=== PATIENT | female | born 2000 | race Caucasian/White ===

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

== ENCOUNTER → 2021-02-20 | Day surgery (SDC) | payer BC, OTHER ==
[~2021-02-20] MED LIST changes: +ALLERGY SHOT INJ; +HYDROCODON-ACE1 EAC4 PO; +ZOFRAN ODT 4 MG4 MG GT
== END | disposition home or self-care (01) ==
LOC: OR 05:42
DX: K80.64 Calculus of gallbladder and bile duct with chronic cholecystitis without obstruction (principal); Z20.822 Contact with and (suspected) exposure to COVID-19; K76.0 Fatty (change of) liver, not elsewhere classified; E66.01 Morbid (severe) obesity due to excess calories
CPT/HCPCS: 84703; C1729; J0690; J1100; J1170; J1885; J2001; J2250; J2405; J2704; J2710; J3010; J7030; J7120

== ENCOUNTER 2021-04-04 15:32 | Emergency (ER) | payer BC, OTHER ==
[~2021-04-04] VITALS: Ht 167.6 cm; Wt 89.4 kg
== END 2021-04-04 18:23 | disposition home or self-care (01) ==
LOC: ER1 15:32
DX: U07.1 COVID-19 (principal); Z90.49 Acquired absence of other specified parts of digestive tract; Z23 Encounter for immunization
CPT/HCPCS: 71045; 99283; M0243